=== PATIENT | male | born 2000 | race Two or more races ===

== ENCOUNTER 2024-01-24 04:39 | Inpatient (IN) | payer OTHER ==
[~2024-01-24] VITALS: Ht 167.6 cm; Wt 70.4 kg
[2024-01-24 05:37] LABS: Basophils # (auto) 0 10 ^3/uL (0-0.2); Basophils % (auto) 1.3 % (0.0-2.0); Eosinophils # (auto) 0.1 10 ^3/uL (0-0.8); Eosinophils % (auto) 3.7 % (0.0-7.0); Hematocrit 43.5 % (41.0-53.0); Hemoglobin 15.2 g/dL (13.5-17.5); Lymphocytes # (auto) 1.5 10 ^3/uL (0.4-5.4); Lymphocytes % (auto) 43.4 % (10.0-50.0); Mean Corpuscular Hemoglobin 29.9 pg (28.0-32.0); Mean Corpuscular Hgb Conc. 34.9 g/dL (32.0-36.0); Mean Corpuscular Volume 85.6 fL (80.0-100.0); Monocytes # (auto) 0.4 10 ^3/uL (0-1.3); Monocytes % (auto) 10.9 % (0.0-12.0); Neutrophils # (auto) 1.4 10 ^3/uL (1.6-8.6); Neutrophils % (auto) 40.7 % (37.0-80.0); Platelet Count (auto) 190 10^3/uL (140-450); Red Blood Cells 5.08 10^6/uL (4.5-5.90); Red Cell Distribution Width 13.7 % (11.8-14.3); White Blood Cell 3.4 10^3/uL (4.4-10.8)
[2024-01-24 06:15] LABS: Alanine Aminotransferase 38 U/L (7-40); Albumin 4.7 g/dL (3.2-4.8); Alkaline Phosphatase 72 U/L (46-116); Anion Gap 6 (5-15); Aspartate Aminotransferase 20 U/L (13-40); BUN/Creatinine Ratio 9.5 (10.0-20.0); Bilirubin, Total 0.9 mg/dL (0.2-1.0); Blood Urea Nitrogen 10 mg/dL (9-23); Calcium 9.8 mg/dL (8.7-10.4); Carbon Dioxide 27 mmol/L (20-30); Chloride 106 mmol/L (98-107); Glucose 105 mg/dL (74-106); Potassium 3.8 mmol/L (3.5-5.1); Sodium 139 mmol/L (136-145); Total Protein 7.1 g/dL (5.7-8.2)
[2024-01-24 06:20] VITALS: PULSE 68; RESP 14; O2SAT 98
[2024-01-24 07:17] LABS: Urine Bacteria None Seen /hpf (None Seen)
[2024-01-24 07:46] LABS: Urine Blood 3+ /uL (Negative); Urine Budding Yeast OCCASIONAL /hpf (None Seen); Urine Clarity Turbid (Clear); Urine Color Light-Orange (Yellow); Urine Mucus FEW (None Seen); Urine Protein, UAD 1+ (Negative); Urine Specific Gravity 1.024 (1.001-1.035); Urine Urobilinogen Normal (Negative); Urine WBC 4 /hpf (0 - 3); Urine pH 5.5 (5.0-9.0)
[2024-01-24] MEDS: TAMSULOSIN HYDROCHLORIDE 0.4 MG CAP PO ONE (08:17)
[2024-01-24] MEDS: SODIUM CHLORIDE 0.9% 1,000 ML IVB ONE (08:18)
[2024-01-24] MEDS: KETOROLAC TROMETH 30 MG/ML 1ML VIAL IV ONE (08:32)
[2024-01-24] MEDS: SODIUM CHLORIDE 0.9% 1,000 ML IV ONE (09:16)
[2024-01-24] MEDS ORDERED: DOCUSATE SOD 100 MG CAP PO PRN (14:15)
[2024-01-24] MEDS ORDERED: ACETAMINOPHEN 325 MG TAB PO PRN (14:15)
[2024-01-24] MEDS ORDERED: ONDANSETRON HCL 4 MG/2 ML VIAL IV PRN (14:15)
[2024-01-24] MEDS ORDERED: HYDROcodone-ACET 5/325MG TAB PO PRN (14:15)
[2024-01-24] MEDS ORDERED: MORPHINE SULFATE INJ 2 MG/ml SYRG IV PRN ×2 (14:15→14:30)
[2024-01-24] MEDS ORDERED: NITROGLYCERIN 0.4 MG SL TAB SL PRN (14:30)
[2024-01-24 16:00] VITALS: BP 125/60; PULSE 67; RESP 20; TEMP 98.2; O2SAT 94
[2024-01-24] MEDS: SODIUM CHLORIDE 0.9% 1,000 ML IV SCH (16:10)
[2024-01-24] MEDS: TAMSULOSIN HYDROCHLORIDE 0.4 MG CAP PO SCH (16:22)
[2024-01-24] MEDS: MANNITOL FTV 25% 12.5 GM/50 ML 50 ML IV ONE (16:36)
[2024-01-24] MEDS ORDERED: TAMS-35 PO (17:01)
[2024-01-24] MEDS ORDERED: IBU600T PO (17:01)
== END 2024-01-24 17:03 | disposition home or self-care (01) | DRG 694 ==
LOC: ER 04:39 → OVERFLOW 14:19
PROVIDERS: ADMIT Nurse Practitioner Family; ATTEND Nurse Practitioner Family
DX: N13.2 Hydronephrosis with renal and ureteral calculous obstruction (principal); N28.89 Other specified disorders of kidney and ureter; Z79.899 Other long term (current) drug therapy
CPT/HCPCS: 36415; 74176; 80053; 81001; 85025; 99291; G0378; J1885